=== PATIENT | male | born 1975 | race African-American/Black ===

== ENCOUNTER 2020-11-10 05:09 | Day surgery (SDC) | payer OTHER ==
[2020-11-07 09:05] VITALS: BMI 32.2
[2020-11-10] MEDS ORDERED: KETOROLAC TROMETHAMINE 30 MG/1 ML VIAL ONE (16:53)
[2020-11-10] MEDS ORDERED: PROPOFOL 20 ML ONE (16:53)
[2020-11-10] MEDS ORDERED: MIDAZOLAM HCL 2 MG/2 ML SINGLE DOSE VIAL ONE (16:53)
[2020-11-10] MEDS ORDERED: LIDOCAINE HCL/PF 2% SDV 5ML VIAL ONE (16:56)
[2020-11-10 17:42] VITALS: TEMP 97.2
[2020-11-10 18:38] VITALS: BP 129/87; PULSE 75
== END 2020-11-10 19:20 | disposition home or self-care (01) ==
LOC: JASU-SURG 05:09
PROVIDERS: ATTEND Urology
PROC: 0TF4XZZ Fragmentation in Left Kidney Pelvis, External Approach (ICD-10-PCS; principal; 2020-11-10 15:00)
DX: N20.0 Calculus of kidney (principal)